=== PATIENT | female | born 1975 | race Caucasian/White ===

== ENCOUNTER 2021-05-01 12:48 | Emergency (ER) | payer OTHER, SELFPAY ==
[~2021-05-01] VITALS: Ht 161.3 cm; Wt 78.0 kg
--- NOTE | 2021-05-01 13:32 | NUR ---
pt name called in lobby and outside, no answer at this time
--- NOTE | 2021-05-01 13:36 | NUR ---
number on file is not in service
[2021-05-01 13:53] VITALS: BP 117/72
--- NOTE | 2021-05-01 13:55 | NUR ---
novel and flu swabbed, pt asked to wait in car at this time
[2021-05-01] MEDS ORDERED: ACET-10509 PO (14:35)
[2021-05-01 15:28] VITALS: BP 128/70
--- NOTE | 2021-05-01 15:29 | NUR ---
Patient discharged with v/s stable. Written and verbal after care instructions given and explained. Patient verbalized understanding. Ambulatory with steady gait. All questions addressed prior to discharge. Advised to follow up with PMD.
== END 2021-05-01 15:29 | disposition home or self-care (01) ==
LOC: MED 12:48
DX: R51.9 Headache, unspecified (principal); Z20.822 Contact with and (suspected) exposure to COVID-19; Z79.899 Other long term (current) drug therapy
CPT/HCPCS: 87804; 99283; U0003

== ENCOUNTER 2022-12-20 08:45 | Emergency (ER) | payer OTHER ==
[~2022-12-20] VITALS: Ht 157.5 cm; Wt 81.6 kg
[~2022-12-20 08:45] MED LIST: ACET-10509 PO
[2022-12-20 08:54] VITALS: BP 109/69; PULSE 74; RESP 16; TEMP 96.4; O2SAT 100
[2022-12-20] MEDS ORDERED: ACET-10509 PO (09:16)
[2022-12-20] MEDS ORDERED: CIPR7.5S OT (09:16)
[2022-12-20] MEDS ORDERED: IBUP-2218 PO (09:16)
[2022-12-20 09:24] VITALS: BP 109/69; PULSE 74; RESP 16; TEMP 96.4; O2SAT 100
== END 2022-12-20 09:20 | disposition home or self-care (01) ==
LOC: MED 08:45
DX: H60.91 Unspecified otitis externa, right ear (principal); Z79.899 Other long term (current) drug therapy
CPT/HCPCS: 99283